=== PATIENT | female | born 1985 | race Caucasian/White ===

== ENCOUNTER 2019-12-07 20:39 | Emergency (ER) | payer OTHER, SELFPAY ==
[2019-12-07 20:54] VITALS: BP 133/65; PULSE 80; RESP 16; TEMP 36.9; O2SAT 99
--- NOTE | 2019-12-07 20:55 | ED_ITS ---
HPI - Extremity Injury (Upper) General Chief Complaint: Skin/Abscess/Foreign Body Stated Complaint: stitches R hand, says infected, not healing Time Seen by Provider: 12/07/19 20:47 Source: patient Mode of arrival: Ambulatory Limitations: no limitations History of Present Illness HPI narrative: The patient sustained a right hand injury 26 November. Multiple sutures were placed. Sutures or pole on 05 December 2019. Redness and swelling was noted at that time, she was started on Keflex. Throughout the course of treatment she has had some tightness with the extension of the right index finger. That tightness still exist. There still is warmth and swelling to the palm proximal to the index MCP, the site of the laceration. She is having no fever chills. Related Data Previous Rx's Medication Instructions Recorded clindamycin HCl 300 mg PO TID 7 Days #21 cap 12/08/19 Allergies Allergy/AdvReac Type Severity Reaction Status Date / Time clindamycin Allergy Mild Rash Verified 12/07/19 21:50 Sulfa (Sulfonamide Allergy Verified 12/07/19 21:51 Antibiotics) Review of Systems Review of Systems ROS Unobtainable: All systems reviewed & are unremarkable except as noted in HPI and below Constitutional Constitutional: Denies chills, Denies fever(s) and Denies weakness Musculoskeletal Musculoskeletal: Denies numbness Comments: Complains of pain and swelling with tightness in the index finger, d istal to the injury/suture site. Integumentary/Breasts Comments: Erythema to the palm of the palm of the right hand. Neurologic Neurologic: Denies numbness and Denies weakness Exam Initial Vital Signs Initial Vital Signs: Vital Signs Temperature 98.4 F 12/07/19 20:54 Pulse Rate 80 12/07/19 20:54 Respiratory Rate 16 12/07/19 20:54 Blood Pressure 133/65 12/07/19 20:54 Pulse Oximetry 99 12/07/19 20:54 Const General: cooperative and well developed Nutritional Appearance: well nourished Skin General: no rashes or lesions noted, No jaundice and No petechiae Other: Erythema to the palm of her right index finger, proximal to the index MCP. Neuro General: patient alert and patient oriented x3 Speech: speech normal Other: Normal motor sensory exam to the right hand. Extrem General: full ROM, no clubbing, cyanosis or edema, no pedal edema and no calf tenderness Other: Healing incision site in the palm of the right hand, proximal to the index MCP. She has normal flexion extension of the digit, although she feels tightness at the site. There is slight erythema and slight warmth in the palm region adjacent to the incision. The incision is well-healed. There has been no purulent drainage from the incision site. Course Course Course Narrative: The patient has apprised a test. IV clindamycin was chosen for the right hand infection. A prescription for oral clindamycin was also given prior to discharge. She is advised to frequent exercise in the right palm. She is advised recheck with her doctor return here if not improving withi n 3 days. Orders Ordered: Discontinued Medications Bacitracin (Bacitracin) 1 applic TOP NOW ONE Stop: 12/07/19 23:55 Clindamycin Phosphate (Cleocin) 900 mg in 50 mls @ 50 mls/hr IV NOW ONE Stop: 12/07/19 22:31 Last Infusion: 12/07/19 23:08 Dose: 0 mls/hr Documented by: Admin: 12/07/19 21:40 Dose: 50 mls/hr Documented by: JE Vital Signs Vital signs: Vital Signs - 8 hr 12/07/19 20:54 12/07/19 22:34 12/08/19 00:17 Temperature 98.4 F Pulse Rate 80 67 82 Respiratory Rate 16 13 14 Blood Pressure 133/65 109/67 Blood Pressure [Left Arm] 120/69 Pulse Oximetry 99 100 98 MDM - Extremity Injury (Upper) Lab Data Labs: Point of Care Testing Test Results Positive Discharge Plan Departure Patient Disposition: Home Clinical Impression: Cellulitis of fingernail of right hand, Discharge Date/Time: 12/08/19 00:17 Instructions: DI for Cellulitis -- Adult Activity Restrictions/Additional Instructions: Clindamycin 3 times daily for 7 days. Stretch the hand frequently as we discussed. Return the ER if you experience increased redness or swelling in the hand. Recheck with your doctor if not improving. Prescriptions: New clindamycin HCl 300 mg capsule 300 mg PO TID 7 Days Qty: 21 RF: 0
--- NOTE | 2019-12-07 21:30 | PC.NURSE ---
PT states possible allergy to azithromycin as a child reports mild rash, provider aware in to speak with pt. Pt states willing to take clindamycin after conversation with
[2019-12-07] MEDS: CLINDAMYCIN 900 MG/50 ML PIGGYBACK 50 MG IV (21:40)
--- NOTE | 2019-12-07 22:11 | PC.NURSE ---
PT states increasing Redness and swelling to right hand taking Keflex, had sutures removed 3 days ago. R hand Swelling, warmth and redness noted denies fevers. PT reports tightness to right hand.
[2019-12-07 22:34] VITALS: BP 120/69; PULSE 67; RESP 13; O2SAT 100
[2019-12-08 00:17] VITALS: BP 109/67; PULSE 82; RESP 14; O2SAT 98
== END 2019-12-08 00:17 | disposition home or self-care (01) ==
PROVIDERS: Emergency Provider Emergency Medicine
DX: L03.011 Cellulitis of right finger (principal); Z32.01 Encounter for pregnancy test, result positive
CPT/HCPCS: 81025; 96365; 99284